=== PATIENT | male | born 1955 | race Caucasian/White ===

== ENCOUNTER 2018-11-30 14:41 | Day surgery (SDC) | payer BC ==
[2018-11-30] VITALS (7 sets, daily range): BP systolic 141–160; BP diastolic 73–92; PULSE 44–55; TEMP 97.5–98.2
[~2018-11-30] VITALS: Ht 177.8 cm; Wt 106.1 kg
[2018-11-30] MEDS ORDERED: VITAMIN B12 781 TAB PO (15:11)
[2018-11-30] MEDS ORDERED: ZYRTEC 10MG10 MG PO (15:11)
[2018-11-30] MEDS ORDERED: ENTRESTO 49 MG1 EACH PO (15:12)
[2018-11-30] MEDS ORDERED: ZOCOR 40MG40 MG PO (15:12)
[2018-11-30] MEDS ORDERED: FLOMAX 0.40.4 MG/CAP PO (15:13)
[2018-11-30] MEDS ORDERED: MORP4 IV (15:15)
[2018-11-30] MEDS ORDERED: KETOROLAC30 MG/ML IV (15:16)
[2018-11-30] MEDS ORDERED: ZOFRAN INJ4 MG/2 ML IV (15:17)
--- NOTE | 2018-11-30 19:20 | NUR ---
Patient has done well since up to room 322. Family at bedside. Rebolledo catheter to dependent drainage with garcia red urine present initially, has now cleared up to light pink. Patient states ocassional bladder spasms. Has been up to restroom x 1 assist, steady gait. Post op VSS. Tolerating liquids without difficulty. Denies further needs at this time. Reported off to weight shifter.
--- NOTE | 2018-11-30 20:00 | NUR ---
Pt. has met criteria for discharge. Pt. denies pain, urine is red tinged. Pt. to discharge with valenzuela catheter.
--- NOTE | 2018-11-30 20:00 | NUR ---
Pt. sitting up in bed at this time. Pt. is A&OX3, assessment complete. Rebolledo catheter to DD, red tinged, clear urine noted. Pt. reports that bladder spasms have passed. Pt. denies further needs, call light within reach.
--- NOTE | 2018-11-30 20:30 | NUR ---
Pt. given discharge paperwork. Reviewed home instructions, medications, health summary, pt. education sent with pt. Reviewed with how to remove valenzuela catheter. Pt. sent home with supplies for valenzuela removal. INT removerd from lt. wrist. Pt. dressed and escorted out with PAULY Milian, by wheel chair.
== END 2018-11-30 20:31 ==
LOC: SDCO 14:41 → SURG 18:07 → SDCO 20:30 → SURG 20:30 → SDCO 20:31 → SURG 12-03 08:37
DX: N20.1 Calculus of ureter (principal); I42.9 Cardiomyopathy, unspecified; Z79.899 Other long term (current) drug therapy; I11.0 Hypertensive heart disease with heart failure; E78.5 Hyperlipidemia, unspecified; G47.33 Obstructive sleep apnea (adult) (pediatric); R33.9 Retention of urine, unspecified; M19.90 Unspecified osteoarthritis, unspecified site; Z85.46 Personal history of malignant neoplasm of prostate; Z92.21 Personal history of antineoplastic chemotherapy
CPT/HCPCS: OP; A4314; C1769; C1894; J0690; J1100; J2405; J2704; J3010; J7120; Q9967